=== PATIENT | female | born 1950 | race Caucasian/White ===

== ENCOUNTER 2016-12-25 18:34 | Emergency (ER) | payer MEDICARE, OTHER ==
[~2016-12-25 18:34] MED LIST: Sodium Chloride 0.9% 1,000 ML BAG ONE
[2016-12-25] MEDS ORDERED: Metoclopramide HCl 10 MG/2 ML VIAL ONE (19:50)
[2016-12-25] MEDS ORDERED: Ondansetron HCl/PF 4 MG/2 ML Vial ONE ×2 (19:50→23:28)
[2016-12-25] MEDS ORDERED: Ketorolac Tromethamine 30 MG/ML VIAL ONE (19:50)
[2016-12-25 19:53] LABS: INR-International Normal Ratio 0.9; PTT 39.1 SEC (22.9-36.1); Prothrombin Time 12.5 SEC (12.0-14.7)
[2016-12-25 19:58] LABS: #Basophils 0.1 thou/uL (0.0-0.2); #Eosinphils 0.1 thou/uL (0.0-0.7); #Monocytes 0.9 thou/uL (0.11-0.59); #Neutrophils 6.9 thou/uL (1.40-6.50); %Basophils 0.6 % (0.0-1.0); %Lymphocytes 20.2 % (21.0-51.0); %Monocytes 8.6 % (0.0-10.0); %Neutrophils 69.5 % (42.0-75.0); Hemoglobin 14.1 g/dL (12.0-16.0); Mean Corpuscular HGB CONC 33.2 g/dL (32.0-36.0); Mean Corpuscular Hemoglobin 30.9 pg (27.0-31.0); Mean Platelet Volume 8.2 fL (7.4-10.4); Platelet Count 297 thou/uL (130-400); RBC Distribution Width 12.4 % (11.5-14.5); Red Blood Cell (RBC) Count 4.57 mill/uL (4.20-5.40); White Blood Cell (WBC) Count 9.9 thou/uL (4.8-10.8)
[2016-12-25 20:05] LABS: ALT (SGPT) 26 U/L (8-55); AST (SGOT) 23 U/L (5-34); Albumin 4.3 g/dL (3.4-4.8); Alkaline Phosphatase 128 U/L (40-150); Anion Gap 15 mmol/L (10-20); BUN (Urea Nitrogen) 25 mg/dL (9.8-20.1); Bilirubin, Total Less than 0.3 mg/dL (0.2-1.2); CK (CPK) 156 U/L (29-168); Calc. Creatinine Clearance 0 mL/min (70-130); Calcium 9.8 mg/dL (7.8-10.44); Carbon Dioxide 25 mmol/L (23-31); Chloride 103 mmol/L (98-107); Estimated GFR-MDRD 43; Globulin 2.8 g/dL (2.4-3.5); Glucose 97 mg/dL (80-115); Magnesium 2.3 mg/dL (1.6-2.6); Potassium 4.9 mmol/L (3.5-5.1); Protein, Total 7.1 g/dL (6.0-8.3); Sodium 138 mmol/L (136-145)
--- NOTE | 2016-12-25 20:05 | RAD ---
EXAM: ONE VIEW CHEST 12/25/16 COMPARISON: 05/04/16. HISTORY: Pain. FINDINGS: Normal cardiac silhouette. The lungs and pleural spaces are clear. No pneumothorax or osseous abnorm ality. IMPRESSION: No acute cardiopulmonary process. POS: [facility]
[2016-12-25 20:11] LABS: CKMB 1.7 ng/mL (0-6.6); Troponin I 0.043 ng/mL (< 0.028)
--- NOTE | 2016-12-25 20:43 | CT ---
ABDOMEN CT WITHOUT CONTRAST PELVIC CT WITHOUT CONTRAST 12/25/16 HISTORY: Vomiting. Abdominal bloating. Left flank pain. Right lower quadrant pain. previous nephrectomy due t o cancer. COMPARISON: None. TECHNIQUE: An abdomen and pelvic CT are performed without IV or oral contrast. Coronal reformatted images are s ubmitted for interpretation. FINDINGS: ABDOMEN CT: Atelectasis or scarring in the lingula. Heart size is normal. No pericardial effusion. Descending th oracic aorta and the abdominal aorta have an overall normal caliber. No periaortic fat stranding. Gallbladder is unremarkable. Limited evaluation of the solid organs due to the absence of IV contrast. Grossly no abnormality. Surgically absent left kidney. With regard to the right kidney, no evidence of obstructive uropathy. No mesenteric mass, lymphadenopathy, free air or free fluid. Limited evaluation of the alimentary canal due to lack of oral contrast. Multiple normal caliber sma ll bowel loops are noted. Ileocecal junction is normal. Normal caliber appendix. The right hemicolon is unremarkable. There is scattered fecal material throughout the colon. There is a moderate amount of fecal material in the sigmoid colon and rectum. There is mild mucosal prominence. There is mild stranding of the presacral fat. Correlate for stercoral colitis. Surgical consultation is recommende d. PELVIC CT: Urinary bladder is unremarkable. Surgically absent uterus. No osteoblastic or osteolytic lesions. IMPRESSION: 1. No evidence of bowel obstruction. 2. Significant fecal material in the sigmoid colon and rectum. There is subtle presacral fat st randing and mild prominence of the colonic mucosa at the level of the sigmoid colon and rectum. Deanna elate for stercoral colitis. Surgical consultation is recommended. 3. Normal caliber appendix. POS: [facility]
[2016-12-25] MEDS ORDERED: metroNIDAZOLE 250 MG TAB ONE (23:15)
[2016-12-25] MEDS ORDERED: Cipro 250 MG TAB ONE (23:15)
[2016-12-25 23:25] LABS: Bacteria/HPF 4+ HPF (None Seen); Bilirubin Negative (Negative); Blood, Urine Negative (Negative); Clarity Slightly Cloudy (Clear); Glucose, Urine (Dipstick) Negative (Negative); Leukocyte Large (Negative); Nitrite Negative (Negative); Protein, Urine (Dipstick) Negative (Neg-Trace); Renal Epithelial 0-3 HPF (0-3); Transitional Epithelial 0-3 HPF (0-3); Urobilinogen 0.2 mg/dL (0.2-1.0); WBC/HPF 21-50 HPF (0-3); Yeast-All Forms 1+ HPF (None Seen); pH, Urine 5.5 (5.0-9.0)
[2016-12-25 23:26] LABS: Crystals/HPF 1+ AMORPH URATES HPF (Negative)
[2016-12-26] MEDS ORDERED: Pantoprazole 40 MG VIAL ONE (00:03)
== END 2016-12-26 01:05 | disposition short-term general hospital (02) ==
LOC: MADERS 18:34
DX: K92.2 Gastrointestinal hemorrhage, unspecified (principal); K52.9 Noninfective gastroenteritis and colitis, unspecified; N39.0 Urinary tract infection, site not specified; R56.9 Unspecified convulsions; F41.9 Anxiety disorder, unspecified; F32.9 Major depressive disorder, single episode, unspecified; Z86.73 Personal history of transient ischemic attack (TIA), and cerebral infarction without residual deficits; Z85.528 Personal history of other malignant neoplasm of kidney
CPT/HCPCS: 36415; 71010; 74176; 80053; 81001; 82150; 82550; 82553; 83735; 83880; 84484; 85025; 85610; 85730; 87086; 93005; 94760; 96361; 96374; 96375; 96376; C9113; J1885; J2405; J2765; J7050

== ENCOUNTER 2017-12-18 09:24 | Emergency (ER) | payer MEDICARE, OTHER ==
[2017-12-18] MEDS ORDERED: Naproxen 500 MG TAB ONE (09:51)
--- NOTE | 2017-12-18 10:50 | RAD ---
LEFT SHOULDER 3 VIEWS: Date: 12/18/17 HISTORY: Fall, with pain and injury to shoulder. FINDINGS: There are degenerative changes at the shoulder. Mild spurring from the humeral head. No evidence of f racture or dislocation. AC joint is normally aligned. IMPRESSION: Mild degenerative changes at the glenohumeral joint. POS: [facility]
== END 2017-12-18 10:30 | disposition home or self-care (01) ==
LOC: MADERS 09:24
DX: S40.012A Contusion of left shoulder, initial encounter (principal); F31.9 Bipolar disorder, unspecified; F41.9 Anxiety disorder, unspecified; G40.909 Epilepsy, unspecified, not intractable, without status epilepticus; Z85.528 Personal history of other malignant neoplasm of kidney; Z85.820 Personal history of malignant melanoma of skin; Z86.73 Personal history of transient ischemic attack (TIA), and cerebral infarction without residual deficits; Z79.899 Other long term (current) drug therapy; W19.XXXA Unspecified fall, initial encounter

== ENCOUNTER 2018-01-01 08:27 | Emergency (ER) | payer MEDICARE, OTHER ==
[2018-01-01] MEDS ORDERED: Ketorolac Tromethamine 30 MG/ML VIAL ONE (08:55)
--- NOTE | 2018-01-01 11:31 | RAD ---
LEFT SHOULDER 3 VIEWS: Date: 01/01/18 HISTORY: Shoulder injury. FINDINGS: There are mild arthritic changes of the AC and glenohumeral joints. There are no signs of fracture or dislocation. IMPRESSION: No evidence of fracture. POS: [facility]
== END 2018-01-01 09:55 | disposition home or self-care (01) ==
LOC: MADERS 08:27
DX: S40.012A Contusion of left shoulder, initial encounter (principal); G40.909 Epilepsy, unspecified, not intractable, without status epilepticus; F41.9 Anxiety disorder, unspecified; F31.9 Bipolar disorder, unspecified; Z79.899 Other long term (current) drug therapy; Z86.73 Personal history of transient ischemic attack (TIA), and cerebral infarction without residual deficits; Z85.528 Personal history of other malignant neoplasm of kidney; Z85.820 Personal history of malignant melanoma of skin; W19.XXXA Unspecified fall, initial encounter; Y92.009 Unspecified place in unspecified non-institutional (private) residence as the place of occurrence of the external cause
CPT/HCPCS: 96372; J1885

== ENCOUNTER 2018-01-09 10:00 | Emergency (ER) | payer MEDICARE, OTHER ==
[2018-01-09] MEDS ORDERED: Morphine 10 MG/ML VIAL ONE (11:23)
[2018-01-09] MEDS ORDERED: Ondansetron ODT 4 MG TAB ONE (11:24)
--- NOTE | 2018-01-09 12:30 | RAD ---
LEFT SHOULDER THREE VIEWS: Comparison: 01-01-18 History: Pain. Injury. FINDINGS: Glenohumeral joint space preserved. No fracture or dislocation. IMPRESSION: No fracture or dislocation. POS: [facility]
== END 2018-01-09 12:12 | disposition home or self-care (01) ==
LOC: MADERS 10:00
DX: M25.512 Pain in left shoulder (principal); G40.909 Epilepsy, unspecified, not intractable, without status epilepticus; F41.9 Anxiety disorder, unspecified; F31.9 Bipolar disorder, unspecified; Z86.73 Personal history of transient ischemic attack (TIA), and cerebral infarction without residual deficits; Z85.528 Personal history of other malignant neoplasm of kidney; Z85.820 Personal history of malignant melanoma of skin; W19.XXXA Unspecified fall, initial encounter
CPT/HCPCS: 96372; J2270; Q0162

== ENCOUNTER 2019-09-04 12:31 | Outpatient (CLI) | payer MEDICARE ==
--- NOTE | 2019-09-04 12:50 | RAD ---
EXAM: Chest 2 views: HISTORY: Persistent cough COMPARISON: 04/11/2019 FINDINGS: There is a normal-sized cardiomediastinal silhouette. There is no evidence of consolidation, mass, or pleural effusion. The bones are unremarkable. IMPRESSION: No evidence of acute cardiopulmonary disease
== END 2019-09-04 12:32 | disposition home or self-care (01) ==
LOC: MADRAD 12:31
PROVIDERS: ATTEND Family Medicine
DX: R06.82 Tachypnea, not elsewhere classified (principal); R05 Cough
CPT/HCPCS: 71046

== ENCOUNTER 2020-07-15 15:26 | Emergency (ER) | payer MEDICARE ==
--- NOTE | 2020-07-15 16:06 | CT ---
CT BRAIN NONCONTRAST: DATE: 07/15/2020 HISTORY: 70-year-old female status post acute head trauma from fall FINDINGS: There is no evidence of acute intra-axial or extra-axial hemorrhage. There is no midline shift or any other mass effect. There is no extra-axial fluid collection. There is no evidence of obstructive hydrocephalus. Calvarium is intact. 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 IMPRESSION: No acute intracranial findings.
--- NOTE | 2020-07-15 16:22 | CT ---
CT CERVICAL SPINE WITHOUT CONTRAST: 07/15/20 INDICATIONS: Fall with injury to neck. Neck pain. FINDINGS: Degenerative changes of the cervical spine. Disc narrowing and spurring is prominent at the C5-6, C6- 7 levels. Posterior spondylosis at these levels. Mild anterolisthesis at C4-5. Prominent facet hypertrophy. Foraminal stenosis bilaterally at C3-4, C4-5 and C5-6 due to facet and u ncinate hypertrophy. 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 No evidence of fracture. IMPRESSION: Degenerative changes of the cervical spine. No evidence of acute fracture. POS: [facility]
--- NOTE | 2020-07-15 16:27 | RAD ---
PORTABLE CHEST: 07/15/20 HISTORY: Mental status change. Fall. COMPARISON: 11/03/19. Atelectasis in the left lung base at the hemidiaphragm and CP angle. Findings otherwise clear. No inf iltrate or vascular congestion. Heart and mediastinum unremarkable. IMPRESSION: Evidence of left basilar atelectasis. Lungs are otherwise clear. POS: [facility]
[2020-07-15 16:28] LABS: Bilirubin Negative (Negative); Blood, Urine Trace (Negative); Clarity Clear (Clear); Glucose, Urine (Dipstick) Negative (Negative); Ketone, Urine Negative (Negative); Leukocyte Negative (Negative); Nitrite Negative (Negative); Protein, Urine (Dipstick) Negative (Neg-Trace); Urobilinogen 0.2 mg/dL (Less than 2)
[2020-07-15] MEDS ORDERED: Bacitracin 1 PK ONE (16:28)
[2020-07-15] MEDS ORDERED: Aspirin Chewable 81 MG TAB ONE (16:28)
[2020-07-15 16:32] LABS: Specific Gravity, Urine 1.005 (1.002-1.036)
[2020-07-15 16:32] LABS: #Lymphocytes 0.7 thou/uL (1.20-3.40); #Monocytes 0.8 thou/uL (0.11-0.59); #Neutrophils 7.2 thou/uL (1.40-6.50); %Basophils 0.3 % (0.0-1.0); %Eosinophils 0.3 % (0.0-10.0); %Lymphocytes 8.1 % (21.0-51.0); %Monocytes 8.6 % (0.0-10.0); %Neutrophils 82.7 % (42.0-75.0); Hemoglobin 11.2 g/dL (12.0-16.0); Mean Corpuscular Hemoglobin 31.9 pg (27.0-31.0); Mean Corpuscular Volume 93.7 fL (78.0-98.0); Mean Platelet Volume 7.9 fL (7.4-10.4); Platelet Count 248 thou/uL (130-400); Red Blood Cell (RBC) Count 3.51 mill/uL (4.20-5.40); White Blood Cell (WBC) Count 8.7 thou/uL (4.8-10.8)
[2020-07-15 16:36] LABS: Bacteria/HPF Rare-Few HPF (None Seen); RBC/HPF 0-3 HPF (0-3); Squamous Epithelial 0-3 HPF (0-3); WBC/HPF None Seen HPF (0-3)
[2020-07-15 16:37] LABS: Amphetamine Not Detected (NotDetected); Barbiturates Screen Detected (NotDetected); Benzodiazepine Screen Not Detected (NotDetected); Cocaine Metabolite Screen Not Detected (NotDetected); Medtox Control Line Valid? VALID (VALID); Methadone Not Detected (NotDetected); Methamphetamine Not Detected (NotDetected); Opiate Screen Not Detected (NotDetected); Oxycodone Screen Not Detected (NotDetected); Phencyclidine (PCP) Not Detected (NotDetected); THC/Cannabinoid Screen Not Detected (NotDetected); Tricyclic Screen Not Detected (NotDetected)
[2020-07-15 16:45] LABS: ALT (SGPT) 45 U/L (8-55); AST (SGOT) 31 U/L (5-34); Alkaline Phosphatase 111 U/L (40-110); Anion Gap 17 mmol/L (10-20); BUN (Urea Nitrogen) 17 mg/dL (9.8-20.1); Bilirubin, Total 0.3 mg/dL (0.2-1.2); Calc. Creatinine Clearance 0 mL/min (70-130); Calcium 9.6 mg/dL (7.8-10.44); Carbon Dioxide 18 mmol/L (23-31); Chloride 99 mmol/L (98-107); Estimated GFR-MDRD 42; Globulin 2.1 g/dL (2.4-3.5); Glucose 108 mg/dL (83-110); Potassium 3.7 mmol/L (3.5-5.1); Protein, Total 6.1 g/dL (6.0-8.3); Sodium 130 mmol/L (136-145)
[2020-07-15 16:46] LABS: Acetaminophen Less than 6.0 mcg/mL (10.0-30.0); Alcohol Less than 10 mg/dL (Less than 10); Lipase 17 U/L (8-78); Magnesium 1.4 mg/dL (1.6-2.6); Salicylate Less than 8.0 mg/dL (15.0-30.0)
[2020-07-15] MEDS ORDERED: Magnesium 2 GM/50 ML BAG (IN WATER) ONE (16:57)
[2020-07-15] MEDS ORDERED: Acetaminophen 325 MG TAB ONE (19:14)
[2020-07-15 21:04] LABS: Carbamazepine-Tegretol 5.1 ug/mL (4.0-12.0)
== END 2020-07-15 21:22 | disposition short-term general hospital (02) ==
LOC: MADERS 15:26
DX: I63.9 Cerebral infarction, unspecified (principal); F41.9 Anxiety disorder, unspecified; F31.9 Bipolar disorder, unspecified; Z87.891 Personal history of nicotine dependence; Z79.899 Other long term (current) drug therapy
CPT/HCPCS: 36415; 51701; 70450; 71045; 72125; 80053; 80156; 80306; 80307; 81003; 81015; 83605; 83690; 83735; 84484; 85025; 93005; 94760; 96365; J3475

== ENCOUNTER 2020-10-04 08:29 | Emergency (ER) | payer MEDICARE ==
[2020-10-04 09:16] LABS: #Eosinphils 0.1 thou/uL (0.0-0.7); #Lymphocytes 1.1 thou/uL (1.20-3.40); #Monocytes 0.5 thou/uL (0.11-0.59); #Neutrophils 3.9 thou/uL (1.40-6.50); %Basophils 0.8 % (0.0-1.0); %Eosinophils 2.4 % (0.0-10.0); %Lymphocytes 18.8 % (21.0-51.0); %Monocytes 9.3 % (0.0-10.0); %Neutrophils 68.7 % (42.0-75.0); Hemoglobin 11.7 g/dL (12.0-16.0); Mean Corpuscular HGB CONC 32.6 g/dL (32.0-36.0); Mean Corpuscular Hemoglobin 30.4 pg (27.0-31.0); Mean Corpuscular Volume 93.2 fL (78.0-98.0); Mean Platelet Volume 7.9 fL (7.4-10.4); Platelet Count 234 thou/uL (130-400); RBC Distribution Width 11.9 % (11.5-14.5); Red Blood Cell (RBC) Count 3.83 mill/uL (4.20-5.40); White Blood Cell (WBC) Count 5.7 thou/uL (4.8-10.8)
--- NOTE | 2020-10-04 09:20 | RAD ---
XR Chest Pa Lat STANDARD History: Cough with shortness of breath Comparison: Chest radiograph July 2020 Findings: Mild lingular scarring. No confluent airspace consolidation, pneumothorax or effusion. No a cute osseous abnormality. Impression: No acute intrathoracic abnormality.
[2020-10-04 09:27] LABS: ALT (SGPT) 31 U/L (8-55); AST (SGOT) 27 U/L (5-34); Albumin 4.1 g/dL (3.4-4.8); Alkaline Phosphatase 100 U/L (40-110); Anion Gap 14 mmol/L (10-20); BUN (Urea Nitrogen) 22 mg/dL (9.8-20.1); Bilirubin, Total 0.2 mg/dL (0.2-1.2); Calc. Creatinine Clearance 0 mL/min (70-130); Calcium 9.4 mg/dL (7.8-10.44); Carbon Dioxide 22 mmol/L (23-31); Chloride 107 mmol/L (98-107); Globulin 2.7 g/dL (2.4-3.5); Glucose 102 mg/dL (83-110); Potassium 4.6 mmol/L (3.5-5.1); Protein, Total 6.8 g/dL (5.8-8.1); Sodium 138 mmol/L (136-145)
[2020-10-05 02:13] LABS: SARS-CoV-2 PCR by NAA Not Detected (NotDetected)
== END 2020-10-04 09:52 | disposition home or self-care (01) ==
LOC: MADERS 08:29
DX: J06.9 Acute upper respiratory infection, unspecified (principal); Z20.822 Contact with and (suspected) exposure to COVID-19; J44.9 Chronic obstructive pulmonary disease, unspecified; Z79.899 Other long term (current) drug therapy
CPT/HCPCS: 71046; 80053; 83605; 83880; 84484; 85025; 85379; 93005; 94760; 99285; U0003; U0005; 87635

== ENCOUNTER 2020-10-26 07:36 | Emergency (ER) | payer MEDICARE ==
[2020-10-26] MEDS ORDERED: Cyclobenzaprine 10 MG TAB ONE (09:10)
== END 2020-10-26 09:19 | disposition home or self-care (01) ==
LOC: MADERS 07:36
DX: S76.011A Strain of muscle, fascia and tendon of right hip, initial encounter (principal); R26.9 Unspecified abnormalities of gait and mobility; M79.10 Myalgia, unspecified site; J44.9 Chronic obstructive pulmonary disease, unspecified; G40.909 Epilepsy, unspecified, not intractable, without status epilepticus; Z87.891 Personal history of nicotine dependence; Z86.73 Personal history of transient ischemic attack (TIA), and cerebral infarction without residual deficits; Z85.840 Personal history of malignant neoplasm of eye; Z85.22 Personal history of malignant neoplasm of nasal cavities, middle ear, and accessory sinuses; Z85.528 Personal history of other malignant neoplasm of kidney; Z79.899 Other long term (current) drug therapy; X58.XXXA Exposure to other specified factors, initial encounter

== ENCOUNTER 2021-01-25 20:10 | Emergency (ER) | payer MEDICARE ==
[2021-01-25] MEDS ORDERED: Bupivacaine PF 0.5% 30 ML VIAL ONE (20:33)
== END 2021-01-25 21:03 | disposition home or self-care (01) ==
LOC: MADERS 20:10
DX: L60.0 Ingrowing nail (principal); G40.909 Epilepsy, unspecified, not intractable, without status epilepticus; J44.9 Chronic obstructive pulmonary disease, unspecified; Z86.73 Personal history of transient ischemic attack (TIA), and cerebral infarction without residual deficits; Z85.528 Personal history of other malignant neoplasm of kidney; Z79.899 Other long term (current) drug therapy; Z85.840 Personal history of malignant neoplasm of eye
CPT/HCPCS: 11750; S0020

== ENCOUNTER 2021-02-08 17:38 | Emergency (ER) | payer MEDICARE ==
[2021-02-08 18:08] LABS: #Eosinphils 0.1 thou/uL (0.0-0.7); #Lymphocytes 1.3 thou/uL (1.20-3.40); #Monocytes 0.5 thou/uL (0.11-0.59); #Neutrophils 3.3 thou/uL (1.40-6.50); %Basophils 0.8 % (0.0-1.0); %Eosinophils 1.5 % (0.0-10.0); %Lymphocytes 24.3 % (21.0-51.0); %Monocytes 9.5 % (0.0-10.0); Hemoglobin 12.1 g/dL (12.0-16.0); Mean Corpuscular HGB CONC 31.8 g/dL (32.0-36.0); Mean Corpuscular Hemoglobin 30.1 pg (27.0-31.0); Mean Corpuscular Volume 94.7 fL (78.0-98.0); Mean Platelet Volume 8.5 fL (7.4-10.4); Platelet Count 247 thou/uL (130-400); RBC Distribution Width 12.9 % (11.5-14.5); Red Blood Cell (RBC) Count 4.01 mill/uL (4.20-5.40); White Blood Cell (WBC) Count 5.1 thou/uL (4.8-10.8)
[2021-02-08] MEDS ORDERED: Aspirin Chewable 81 MG TAB ONE (18:09)
[2021-02-08 18:23] LABS: ALT (SGPT) 25 U/L (8-55); AST (SGOT) 20 U/L (5-34); Alkaline Phosphatase 100 U/L (40-110); Anion Gap 14 mmol/L (10-20); BUN (Urea Nitrogen) 34 mg/dL (9.8-20.1); Bilirubin, Total Less than 0.2 mg/dL (0.2-1.2); Calc. Creatinine Clearance 0 mL/min (70-130); Calcium 8.9 mg/dL (7.8-10.44); Carbon Dioxide 23 mmol/L (23-31); Chloride 106 mmol/L (98-107); Globulin 2.4 g/dL (2.4-3.5); Glucose 112 mg/dL (83-110); Potassium 4.6 mmol/L (3.5-5.1); Protein, Total 6.4 g/dL (5.8-8.1); Sodium 138 mmol/L (136-145)
== END 2021-02-08 19:46 | disposition left against medical advice (07) ==
LOC: MADERS 17:38
DX: R07.2 Precordial pain (principal); J44.9 Chronic obstructive pulmonary disease, unspecified; G40.909 Epilepsy, unspecified, not intractable, without status epilepticus; Z85.840 Personal history of malignant neoplasm of eye; Z86.73 Personal history of transient ischemic attack (TIA), and cerebral infarction without residual deficits; Z85.528 Personal history of other malignant neoplasm of kidney; Z79.899 Other long term (current) drug therapy; Z79.1 Long term (current) use of non-steroidal anti-inflammatories (NSAID)
CPT/HCPCS: 71045; 80053; 83880; 84484; 85025

== ENCOUNTER 2021-02-11 04:36 | Emergency (ER) | payer MEDICARE ==
[2021-02-11 05:06] LABS: #Eosinphils 0.1 thou/uL (0.0-0.7); #Lymphocytes 1.2 thou/uL (1.20-3.40); #Monocytes 0.5 thou/uL (0.11-0.59); #Neutrophils 3.7 thou/uL (1.40-6.50); %Basophils 0.8 % (0.0-1.0); %Eosinophils 1.2 % (0.0-10.0); %Lymphocytes 21.1 % (21.0-51.0); %Monocytes 9.8 % (0.0-10.0); %Neutrophils 67.1 % (42.0-75.0); Hemoglobin 12.3 g/dL (12.0-16.0); Mean Corpuscular HGB CONC 31.8 g/dL (32.0-36.0); Mean Corpuscular Hemoglobin 30.1 pg (27.0-31.0); Mean Corpuscular Volume 94.6 fL (78.0-98.0); Mean Platelet Volume 8.9 fL (7.4-10.4); Platelet Count 243 thou/uL (130-400); White Blood Cell (WBC) Count 5.5 thou/uL (4.8-10.8)
[2021-02-11 05:14] LABS: ALT (SGPT) 28 U/L (8-55); AST (SGOT) 25 U/L (5-34); Albumin 4.3 g/dL (3.4-4.8); Alkaline Phosphatase 99 U/L (40-110); Anion Gap 16 mmol/L (10-20); BUN (Urea Nitrogen) 29 mg/dL (9.8-20.1); Bilirubin, Total 0.2 mg/dL (0.2-1.2); CK (CPK) 226 U/L (29-168); Calc. Creatinine Clearance 0 mL/min (70-130); Calcium 10.2 mg/dL (7.8-10.44); Carbon Dioxide 22 mmol/L (23-31); Chloride 104 mmol/L (98-107); Globulin 2.8 g/dL (2.4-3.5); Glucose 147 mg/dL (83-110); Potassium 4.5 mmol/L (3.5-5.1); Protein, Total 7.1 g/dL (5.8-8.1); Sodium 137 mmol/L (136-145)
[2021-02-11] MEDS ORDERED: Mag-Al Plus 1200 MG/1200 MG/120 MG/30 ML UDCUP ONE (05:47)
[2021-02-11] MEDS ORDERED: Lidocaine Viscous Sol 2% 15 ml UD Cup ONE (05:47)
== END 2021-02-11 08:23 | disposition short-term general hospital (02) ==
LOC: MADERS 04:36
DX: I20.0 Unstable angina (principal); I95.9 Hypotension, unspecified; J44.9 Chronic obstructive pulmonary disease, unspecified; Z85.820 Personal history of malignant melanoma of skin; Z85.528 Personal history of other malignant neoplasm of kidney; Z85.840 Personal history of malignant neoplasm of eye; Z86.73 Personal history of transient ischemic attack (TIA), and cerebral infarction without residual deficits
CPT/HCPCS: 71045; 80053; 82550; 82553; 83880; 84484; 85025; 85379; 93005; 94760

== ENCOUNTER 2021-02-19 17:47 | Emergency (ER) | payer MEDICARE ==
[2021-02-19 18:49] LABS: #Eosinphils 0.1 thou/uL (0.0-0.7); #Monocytes 0.5 thou/uL (0.11-0.59); #Neutrophils 2.8 thou/uL (1.40-6.50); %Basophils 0.8 % (0.0-1.0); %Eosinophils 1.3 % (0.0-10.0); %Lymphocytes 21.9 % (21.0-51.0); %Monocytes 12.4 % (0.0-10.0); %Neutrophils 63.6 % (42.0-75.0); Hemoglobin 12.3 g/dL (12.0-16.0); Mean Corpuscular HGB CONC 31.8 g/dL (32.0-36.0); Mean Corpuscular Hemoglobin 30.2 pg (27.0-31.0); Mean Corpuscular Volume 94.9 fL (78.0-98.0); Mean Platelet Volume 8.5 fL (7.4-10.4); Platelet Count 216 thou/uL (130-400); RBC Distribution Width 12.9 % (11.5-14.5); Red Blood Cell (RBC) Count 4.07 mill/uL (4.20-5.40); White Blood Cell (WBC) Count 4.4 thou/uL (4.8-10.8)
[2021-02-19] MEDS ORDERED: Aspirin Chewable 81 MG TAB ONE (18:56)
[2021-02-19] MEDS ORDERED: Nitroglycerin 2% Ointment 1 INCH/1 GM Packet ONE (18:56)
[2021-02-19 19:08] LABS: ALT (SGPT) 34 U/L (8-55); AST (SGOT) 28 U/L (5-34); Alkaline Phosphatase 106 U/L (40-110); Anion Gap 16 mmol/L (10-20); BUN (Urea Nitrogen) 27 mg/dL (9.8-20.1); Bilirubin, Total Less than 0.2 mg/dL (0.2-1.2); Calc. Creatinine Clearance 0 mL/min (70-130); Calcium 8.9 mg/dL (7.8-10.44); Carbon Dioxide 21 mmol/L (23-31); Chloride 104 mmol/L (98-107); Globulin 2.5 g/dL (2.4-3.5); Glucose 117 mg/dL (83-110); Lipase 37 U/L (8-78); Potassium 4.1 mmol/L (3.5-5.1); Protein, Total 6.5 g/dL (5.8-8.1); Sodium 137 mmol/L (136-145)
[2021-02-19] MEDS ORDERED: Simethicone 40 MG/0.6 ML Drop 30 ML BOT ONE (22:09)
[2021-02-19 22:55] LABS: Troponin I 0.012 ng/mL (< 0.028)
== END 2021-02-19 23:20 | disposition home or self-care (01) ==
LOC: MADERS 17:47
DX: K21.9 Gastro-esophageal reflux disease without esophagitis (principal); J44.9 Chronic obstructive pulmonary disease, unspecified; G40.909 Epilepsy, unspecified, not intractable, without status epilepticus; Z85.528 Personal history of other malignant neoplasm of kidney; Z85.840 Personal history of malignant neoplasm of eye; Z79.899 Other long term (current) drug therapy; Z87.891 Personal history of nicotine dependence; Z85.820 Personal history of malignant melanoma of skin; Z86.73 Personal history of transient ischemic attack (TIA), and cerebral infarction without residual deficits
CPT/HCPCS: 36415; 71045; 80053; 83690; 84484; 85025; 93005

== ENCOUNTER 2021-06-05 09:12 | Emergency (ER) | payer MEDICARE ==
[2021-06-05 09:58] LABS: #Basophils 0.1 thou/uL (0.0-0.2); #Eosinphils 0.1 thou/uL (0.0-0.7); #Lymphocytes 1.1 thou/uL (1.20-3.40); #Monocytes 1.1 thou/uL (0.11-0.59); %Basophils 0.5 % (0.0-1.0); %Eosinophils 0.6 % (0.0-10.0); %Lymphocytes 8.7 % (21.0-51.0); %Monocytes 9.2 % (0.0-10.0); %Neutrophils 80.9 % (42.0-75.0); Hemoglobin 12.7 g/dL (12.0-16.0); Mean Corpuscular HGB CONC 31.8 g/dL (32.0-36.0); Mean Corpuscular Volume 94.6 fL (78.0-98.0); Mean Platelet Volume 8.3 fL (7.4-10.4); Platelet Count 246 thou/uL (130-400); RBC Distribution Width 12.6 % (11.5-14.5); Red Blood Cell (RBC) Count 4.23 mill/uL (4.20-5.40); White Blood Cell (WBC) Count 12.3 thou/uL (4.8-10.8)
[2021-06-05 10:14] LABS: ALT (SGPT) 55 U/L (8-55); AST (SGOT) 47 U/L (5-34); Albumin 3.9 g/dL (3.4-4.8); Alkaline Phosphatase 113 U/L (40-110); Anion Gap 14 mmol/L (10-20); BUN (Urea Nitrogen) 17 mg/dL (9.8-20.1); Bilirubin, Total 0.2 mg/dL (0.2-1.2); Calc. Creatinine Clearance 0 mL/min (70-130); Calcium 9.4 mg/dL (7.8-10.44); Carbon Dioxide 22 mmol/L (23-31); Chloride 104 mmol/L (98-107); Globulin 2.7 g/dL (2.4-3.5); Glucose 108 mg/dL (83-110); Lipase 15 U/L (8-78); Magnesium 1.7 mg/dL (1.6-2.6); Potassium 4.2 mmol/L (3.5-5.1); Protein, Total 6.6 g/dL (5.8-8.1); Sodium 136 mmol/L (136-145)
[2021-06-05] MEDS ORDERED: Sodium Chloride 0.9% 1,000 ML BAG ONE (10:48)
[2021-06-05] MEDS ORDERED: metroNIDAZOLE 250 MG TAB ONE (10:48)
[2021-06-05] MEDS ORDERED: Ciprofloxacin 500 MG TAB ONE (10:48)
== END 2021-06-05 11:15 | disposition home or self-care (01) ==
LOC: MADERS 09:12
DX: K57.32 Diverticulitis of large intestine without perforation or abscess without bleeding (principal); J44.9 Chronic obstructive pulmonary disease, unspecified; G40.909 Epilepsy, unspecified, not intractable, without status epilepticus; Z86.73 Personal history of transient ischemic attack (TIA), and cerebral infarction without residual deficits; Z87.891 Personal history of nicotine dependence; Z79.899 Other long term (current) drug therapy
CPT/HCPCS: 36415; 74176; 80053; 82274; 83690; 83735; 85025; 87045; 87046; 87324; 87427; 87449; 87798; 93005; J7050

== ENCOUNTER 2021-06-08 15:05 | Emergency (ER) | payer MEDICARE ==
[2021-06-08 15:52] LABS: #Basophils 0.1 thou/uL (0.0-0.2); #Eosinphils 0.1 thou/uL (0.0-0.7); #Monocytes 0.8 thou/uL (0.11-0.59); #Neutrophils 6.8 thou/uL (1.40-6.50); %Basophils 0.8 % (0.0-1.0); %Eosinophils 1.1 % (0.0-10.0); %Lymphocytes 11.5 % (21.0-51.0); %Monocytes 9.2 % (0.0-10.0); %Neutrophils 77.5 % (42.0-75.0); Hemoglobin 12.2 g/dL (12.0-16.0); Mean Corpuscular HGB CONC 32.2 g/dL (32.0-36.0); Mean Corpuscular Hemoglobin 29.6 pg (27.0-31.0); Mean Corpuscular Volume 91.9 fL (78.0-98.0); Mean Platelet Volume 8.1 fL (7.4-10.4); Platelet Count 256 thou/uL (130-400); RBC Distribution Width 12.1 % (11.5-14.5); Red Blood Cell (RBC) Count 4.12 mill/uL (4.20-5.40); White Blood Cell (WBC) Count 8.8 thou/uL (4.8-10.8)
[2021-06-08 16:12] LABS: ALT (SGPT) 36 U/L (8-55); AST (SGOT) 21 U/L (5-34); Albumin 3.3 g/dL (3.4-4.8); Alkaline Phosphatase 90 U/L (40-110); Anion Gap 12 mmol/L (10-20); BUN (Urea Nitrogen) 20 mg/dL (9.8-20.1); Bilirubin, Total Less than 0.2 mg/dL (0.2-1.2); Calc. Creatinine Clearance 0 mL/min (70-130); Calcium 8.6 mg/dL (7.8-10.44); Carbon Dioxide 21 mmol/L (23-31); Chloride 107 mmol/L (98-107); Globulin 2.4 g/dL (2.4-3.5); Glucose 128 mg/dL (83-110); Lipase 20 U/L (8-78); Magnesium 1.5 mg/dL (1.6-2.6); Potassium 3.8 mmol/L (3.5-5.1); Protein, Total 5.7 g/dL (5.8-8.1); Sodium 136 mmol/L (136-145)
[2021-06-08] MEDS ORDERED: Magnesium Oxide 400 MG TAB ONE (17:13)
== END 2021-06-08 17:19 | disposition home or self-care (01) ==
LOC: MADERS 15:05
DX: A04.72 Enterocolitis due to Clostridium difficile, not specified as recurrent (principal); N17.9 Acute kidney failure, unspecified; E83.42 Hypomagnesemia; K21.9 Gastro-esophageal reflux disease without esophagitis; J44.9 Chronic obstructive pulmonary disease, unspecified; Z86.73 Personal history of transient ischemic attack (TIA), and cerebral infarction without residual deficits; Z87.891 Personal history of nicotine dependence
CPT/HCPCS: 74176; 80053; 83690; 83735; 85025; J7050

== ENCOUNTER 2021-06-14 08:20 | Emergency (ER) | payer MEDICARE ==
[2021-06-14] MEDS ORDERED: predniSONE 20 MG TAB ONE ×2 (08:56→08:57)
== END 2021-06-14 09:33 | disposition home or self-care (01) ==
LOC: MADERS 08:20
DX: J44.1 Chronic obstructive pulmonary disease with (acute) exacerbation (principal); Z86.73 Personal history of transient ischemic attack (TIA), and cerebral infarction without residual deficits; Z85.528 Personal history of other malignant neoplasm of kidney; Z79.899 Other long term (current) drug therapy
CPT/HCPCS: 71045; J7512; J7620

== ENCOUNTER 2021-07-13 16:03 | Emergency (ER) | payer MEDICARE ==
[2021-07-13 17:10] LABS: #Basophils 0.1 thou/uL (0.0-0.2); #Eosinphils 0.1 thou/uL (0.0-0.7); #Lymphocytes 1.2 thou/uL (1.20-3.40); #Monocytes 0.5 thou/uL (0.11-0.59); %Basophils 0.9 % (0.0-1.0); %Eosinophils 1.1 % (0.0-10.0); %Lymphocytes 16.9 % (21.0-51.0); %Monocytes 7.8 % (0.0-10.0); %Neutrophils 73.3 % (42.0-75.0); Mean Corpuscular HGB CONC 31.2 g/dL (32.0-36.0); Mean Corpuscular Volume 92.8 fL (78.0-98.0); Mean Platelet Volume 7.9 fL (7.4-10.4); Platelet Count 250 thou/uL (130-400); RBC Distribution Width 13.3 % (11.5-14.5); Red Blood Cell (RBC) Count 4.15 mill/uL (4.20-5.40); White Blood Cell (WBC) Count 6.9 thou/uL (4.8-10.8)
[2021-07-13 17:23] LABS: ALT (SGPT) 23 U/L (8-55); AST (SGOT) 24 U/L (5-34); Albumin 4.4 g/dL (3.4-4.8); Alkaline Phosphatase 117 U/L (40-110); Anion Gap 15 mmol/L (10-20); BUN (Urea Nitrogen) 21 mg/dL (9.8-20.1); Bilirubin, Total 0.2 mg/dL (0.2-1.2); CK (CPK) 387 U/L (29-168); CRP (Inflammatory) 1.26 mg/dL (= or < 0.5); Calc. Creatinine Clearance 0 mL/min (70-130); Calcium 9.3 mg/dL (7.8-10.44); Carbon Dioxide 23 mmol/L (23-31); Chloride 104 mmol/L (98-107); Globulin 2.6 g/dL (2.4-3.5); Glucose 95 mg/dL (83-110); Potassium 4.2 mmol/L (3.5-5.1); Sodium 138 mmol/L (136-145)
[2021-07-13] MEDS ORDERED: Ondansetron ODT 4 MG TAB ONE (18:59)
== END 2021-07-13 19:01 | disposition home or self-care (01) ==
LOC: MADERS 16:03
DX: A04.71 Enterocolitis due to Clostridium difficile, recurrent (principal); J44.9 Chronic obstructive pulmonary disease, unspecified; G40.909 Epilepsy, unspecified, not intractable, without status epilepticus; Z86.73 Personal history of transient ischemic attack (TIA), and cerebral infarction without residual deficits; Z85.528 Personal history of other malignant neoplasm of kidney; Z87.891 Personal history of nicotine dependence; Z87.19 Personal history of other diseases of the digestive system; Z79.899 Other long term (current) drug therapy
CPT/HCPCS: 36415; 71045; 74176; 80053; 82150; 82550; 83690; 84484; 85025; 86140; Q0162

== ENCOUNTER 2021-08-06 07:15 | Emergency (ER) | payer MEDICARE | END 2021-08-06 08:00 | disposition home or self-care (01) | LOC: MADERS 07:15 | DX: M79.675 Pain in left toe(s) (principal); R59.0 Localized enlarged lymph nodes; K21.9 Gastro-esophageal reflux disease without esophagitis; J44.9 Chronic obstructive pulmonary disease, unspecified; Z87.891 Personal history of nicotine dependence; Z79.899 Other long term (current) drug therapy | CPT/HCPCS: 99283 ==

== ENCOUNTER 2021-10-01 03:40 | Emergency (ER) | payer MEDICARE ==
[2021-10-01] MEDS ORDERED: Acetaminophen 500 MG TAB ONE (04:08)
[2021-10-01] MEDS ORDERED: Sodium Chloride 0.9% 1,000 ML ONE (04:08)
[2021-10-01 04:10] LABS: #Basophils 0.1 thou/uL (0.0-0.2); #Eosinphils 0.1 thou/uL (0.0-0.7); #Lymphocytes 1.2 thou/uL (1.20-3.40); #Monocytes 1.5 thou/uL (0.11-0.59); #Neutrophils 10.1 thou/uL (1.40-6.50); %Basophils 0.7 % (0.0-1.0); %Eosinophils 0.6 % (0.0-10.0); %Lymphocytes 9.1 % (21.0-51.0); %Monocytes 11.4 % (0.0-10.0); %Neutrophils 78.2 % (42.0-75.0); Hemoglobin 12.3 g/dL (12.0-16.0); Mean Corpuscular HGB CONC 33.6 g/dL (32.0-36.0); Mean Corpuscular Hemoglobin 29.6 pg (27.0-31.0); Mean Corpuscular Volume 88.2 fL (78.0-98.0); Mean Platelet Volume 7.7 fL (7.4-10.4); Platelet Count 215 thou/uL (130-400); RBC Distribution Width 12.4 % (11.5-14.5); Red Blood Cell (RBC) Count 4.14 mill/uL (4.20-5.40); White Blood Cell (WBC) Count 12.9 thou/uL (4.8-10.8)
[2021-10-01 04:33] LABS: ALT (SGPT) 28 U/L (8-55); AST (SGOT) 31 U/L (5-34); Alkaline Phosphatase 119 U/L (40-110); Anion Gap 16 mmol/L (10-20); BUN (Urea Nitrogen) 16 mg/dL (9.8-20.1); Bilirubin, Total 0.3 mg/dL (0.2-1.2); Calc. Creatinine Clearance 0 mL/min (70-130); Calcium 8.8 mg/dL (7.8-10.44); Carbon Dioxide 20 mmol/L (23-31); Chloride 103 mmol/L (98-107); Globulin 2.6 g/dL (2.4-3.5); Glucose 104 mg/dL (83-110); Lipase 16 U/L (8-78); Potassium 3.7 mmol/L (3.5-5.1); Protein, Total 6.6 g/dL (5.8-8.1); Sodium 135 mmol/L (136-145)
[2021-10-01 04:34] LABS: CRP (Inflammatory) 15.79 mg/dL (= or < 0.5)
[2021-10-01 05:49] LABS: Bilirubin Negative (Negative); Blood, Urine Trace (Negative); Glucose, Urine (Dipstick) Negative (Negative); Ketone, Urine Negative (Negative); Leukocyte Moderate (Negative); Nitrite Negative (Negative); Protein, Urine (Dipstick) Trace mg/dL (Neg-Trace); Urobilinogen 0.2 mg/dL (Less than 2); pH, Urine 5.5 (5.0-9.0)
[2021-10-01 05:52] LABS: Bacteria/HPF 1+ HPF (None Seen); Clarity Hazy (Clear); RBC/HPF 0-3 HPF (0-3)
== END 2021-10-01 06:35 | disposition home or self-care (01) ==
LOC: MADERS 03:40
DX: A04.72 Enterocolitis due to Clostridium difficile, not specified as recurrent (principal); J44.9 Chronic obstructive pulmonary disease, unspecified; Z87.891 Personal history of nicotine dependence; Z79.899 Other long term (current) drug therapy
CPT/HCPCS: 74176; 80053; 81003; 81015; 82150; 82550; 83605; 83690; 85025; 86140; 87045; 87046; 87324; 87427; 87449; J7050

== ENCOUNTER 2021-10-02 16:39 | Emergency (ER) | payer MEDICARE ==
[2021-10-02 17:29] LABS: #Basophils 0.1 thou/uL (0.0-0.2); #Eosinphils 0.1 thou/uL (0.0-0.7); #Monocytes 1.1 thou/uL (0.11-0.59); %Basophils 1.2 % (0.0-1.0); %Eosinophils 1.4 % (0.0-10.0); %Lymphocytes 12.1 % (21.0-51.0); %Monocytes 12.6 % (0.0-10.0); %Neutrophils 72.7 % (42.0-75.0); Mean Corpuscular HGB CONC 32.5 g/dL (32.0-36.0); Mean Corpuscular Hemoglobin 29.1 pg (27.0-31.0); Mean Corpuscular Volume 89.5 fL (78.0-98.0); Mean Platelet Volume 8.1 fL (7.4-10.4); Platelet Count 222 thou/uL (130-400); RBC Distribution Width 12.4 % (11.5-14.5); Red Blood Cell (RBC) Count 3.79 mill/uL (4.20-5.40); White Blood Cell (WBC) Count 8.3 thou/uL (4.8-10.8)
[2021-10-02 17:33] LABS: Bilirubin Negative (Negative); Blood, Urine Trace (Negative); Clarity Clear (Clear); Glucose, Urine (Dipstick) Negative (Negative); Ketone, Urine Negative (Negative); Leukocyte Trace (Negative); Nitrite Negative (Negative); Protein, Urine (Dipstick) Trace mg/dL (Neg-Trace); Specific Gravity, Urine 1.015 (1.005-1.030); Urobilinogen 0.2 mg/dL (Less than 2)
[2021-10-02 17:39] LABS: RBC/HPF 0-3 HPF (0-3); Squamous Epithelial 0-3 HPF (0-3)
[2021-10-02 17:40] LABS: Bacteria/HPF Rare-Few HPF (None Seen)
[2021-10-02 17:49] LABS: ALT (SGPT) 60 U/L (8-55); AST (SGOT) 54 U/L (5-34); Albumin 3.8 g/dL (3.4-4.8); Alkaline Phosphatase 133 U/L (40-110); Anion Gap 14 mmol/L (10-20); BUN (Urea Nitrogen) 16 mg/dL (9.8-20.1); Bilirubin, Total Less than 0.2 mg/dL (0.2-1.2); Calc. Creatinine Clearance 0 mL/min (70-130); Calcium 8.8 mg/dL (7.8-10.44); Carbon Dioxide 21 mmol/L (23-31); Chloride 109 mmol/L (98-107); Globulin 2.6 g/dL (2.4-3.5); Glucose 117 mg/dL (83-110); Protein, Total 6.4 g/dL (5.8-8.1); Sodium 140 mmol/L (136-145)
== END 2021-10-02 18:39 | disposition home or self-care (01) ==
LOC: MADERS 16:39
DX: M54.50 Low back pain, unspecified (principal); K21.9 Gastro-esophageal reflux disease without esophagitis; J44.9 Chronic obstructive pulmonary disease, unspecified; Z87.891 Personal history of nicotine dependence; Z85.528 Personal history of other malignant neoplasm of kidney; Z85.840 Personal history of malignant neoplasm of eye; Z79.899 Other long term (current) drug therapy
CPT/HCPCS: 74176; 80053; 81003; 81015; 85025; 87086

== ENCOUNTER 2021-10-31 19:36 | Emergency (ER) | payer MEDICARE ==
[2021-10-31 20:36] LABS: #Basophils 0.1 thou/uL (0.0-0.2); #Eosinphils 0.1 thou/uL (0.0-0.7); #Lymphocytes 1.2 thou/uL (1.20-3.40); #Monocytes 0.7 thou/uL (0.11-0.59); #Neutrophils 4.4 thou/uL (1.40-6.50); %Basophils 0.9 % (0.0-1.0); %Eosinophils 1.7 % (0.0-10.0); %Lymphocytes 18.7 % (21.0-51.0); %Monocytes 10.2 % (0.0-10.0); %Neutrophils 68.6 % (42.0-75.0); Hemoglobin 11.2 g/dL (12.0-16.0); Mean Corpuscular HGB CONC 32.7 g/dL (32.0-36.0); Mean Corpuscular Volume 88.6 fL (78.0-98.0); Mean Platelet Volume 7.4 fL (7.4-10.4); Platelet Count 220 thou/uL (130-400); Red Blood Cell (RBC) Count 3.86 mill/uL (4.20-5.40); White Blood Cell (WBC) Count 6.5 thou/uL (4.8-10.8)
[2021-10-31 20:54] LABS: ALT (SGPT) 26 U/L (8-55); AST (SGOT) 24 U/L (5-34); Albumin 4.1 g/dL (3.4-4.8); Alkaline Phosphatase 143 U/L (40-110); Anion Gap 17 mmol/L (10-20); BUN (Urea Nitrogen) 25 mg/dL (9.8-20.1); Bilirubin, Total Less than 0.2 mg/dL (0.2-1.2); CK (CPK) 386 U/L (29-168); Calc. Creatinine Clearance 0 mL/min (70-130); Calcium 9.4 mg/dL (7.8-10.44); Carbon Dioxide 20 mmol/L (23-31); Chloride 106 mmol/L (98-107); Globulin 2.4 g/dL (2.4-3.5); Glucose 106 mg/dL (83-110); Potassium 4.9 mmol/L (3.5-5.1); Protein, Total 6.5 g/dL (5.8-8.1); Sodium 138 mmol/L (136-145)
[2021-10-31 21:00] LABS: CKMB 5.5 ng/mL (0-6.6)
[2021-10-31 21:17] LABS: Troponin I Less than 0.010 ng/mL (< 0.028)
== END 2021-10-31 22:08 | disposition home or self-care (01) ==
LOC: MADERS 19:36
DX: E86.0 Dehydration (principal); R05.9 Cough, unspecified; I50.9 Heart failure, unspecified; K21.9 Gastro-esophageal reflux disease without esophagitis; Z85.528 Personal history of other malignant neoplasm of kidney; Z85.840 Personal history of malignant neoplasm of eye; J44.9 Chronic obstructive pulmonary disease, unspecified; G40.909 Epilepsy, unspecified, not intractable, without status epilepticus; Z87.891 Personal history of nicotine dependence; Z79.899 Other long term (current) drug therapy
CPT/HCPCS: 71045; 80053; 82550; 82553; 83880; 84484; 85025; 93005; 94760

== ENCOUNTER 2022-03-03 09:12 | Emergency (ER) | payer MEDICARE | END 2022-03-03 10:15 | disposition home or self-care (01) | LOC: MADERS 09:12 | DX: U07.1 COVID-19 (principal); K21.9 Gastro-esophageal reflux disease without esophagitis; J44.9 Chronic obstructive pulmonary disease, unspecified; N18.9 Chronic kidney disease, unspecified; Z87.891 Personal history of nicotine dependence; Z85.528 Personal history of other malignant neoplasm of kidney; Z85.840 Personal history of malignant neoplasm of eye; Z79.899 Other long term (current) drug therapy ==

== ENCOUNTER 2022-06-08 19:42 | Emergency (ER) | payer OTHER, MEDICARE ==
[2022-06-08] MEDS ORDERED: HYDROcodone/Acetaminophen 10/325 mg Tablet ONE (20:13)
[2022-06-08] MEDS ORDERED: Boostrix 0.5 ML (Tdap) VIAL (>/=7 yrs of age) ONE (20:13)
[2022-06-08] MEDS ORDERED: HYDROcodone/Acetaminophen 5/325 mg Tablet ONE ×2 (20:18→21:14)
[2022-06-08] MEDS ORDERED: Lidocaine 1% w/Epinephrine 1:100K 20 ML VIAL ONE (20:36)
[2022-06-08] MEDS ORDERED: Bacitracin 1 PK ONE (21:14)
== END 2022-06-08 21:45 | disposition home or self-care (01) ==
LOC: MADERS 19:42
DX: S01.81XA Laceration without foreign body of other part of head, initial encounter (principal); S50.12XA Contusion of left forearm, initial encounter; K21.9 Gastro-esophageal reflux disease without esophagitis; J44.9 Chronic obstructive pulmonary disease, unspecified; Z87.891 Personal history of nicotine dependence; Z79.899 Other long term (current) drug therapy; W01.0XXA Fall on same level from slipping, tripping and stumbling without subsequent striking against object, initial encounter
CPT/HCPCS: 70450; 72125; 90471; 90715